=== PATIENT | female | born 1970 | race Caucasian/White ===

== ENCOUNTER 2016-08-13 11:38 | Emergency (ER) | payer BC ==
[~2016-08-13] VITALS: Ht 170.2 cm; Wt 96.0 kg
[2016-08-13 11:41] VITALS: TEMP 36.9; Ht 170.2 cm; Wt 96.0 kg
[2016-08-13] MEDS ORDERED: SODIUM CHLORIDE 0.9% 1000ML 250 ML IV STA (11:50)
[2016-08-13] MEDS ORDERED: SODIUM CHLORIDE 0.9% 1000ML 1,000 ML IV STA (11:50)
--- NOTE | 2016-08-13 12:20 | DIAGNOSTIC IMAGING REPORT ---
SINGLE VIEW CHEST CLINICAL HISTORY: Atypical chest pain. FINDINGS: An AP, portable, upright chest radiograph is obtained. No prior studies are available for comparison at the time of dictation. The cardiomediastinal silhouette is unremarkable. The lungs and pleural spaces are clear. No pneumothorax is seen. The bony thorax is grossly intact. IMPRESSION: No active disease in the chest. Electronically signed by: Tucker Franco M.D. 08/13/2016 12:19 PM Dictated Date/Time: 08/13/2016 12:18 PM
[2016-08-13 12:27] LABS: BASO % 0.2 %; BASO ABS # 0.01 K/uL (0-0.2); COMPLETE YES; HEMATOCRIT 37.9 % (37-47); IG% 0.2 %; LYMPH % 31.5 %; LYMPH ABS # 1.93 K/uL (1.2-3.4); MEAN CELL VOLUME 81.5 fL (80-100); MEAN CORPUSCULAR HGB CONC 35.6 g/dl (32-36); MEAN PLATELET VOLUME 9.1 fL (7.4-10.4); MONO % 6.7 %; NEUT % 60.4 %; PLATELET COUNT 262 K/uL (130-400); RED BLOOD COUNT 4.65 M/uL (4.2-5.4); WHITE BLOOD COUNT 6.13 K/uL (4.8-10.8)
[2016-08-13] MEDS ORDERED: MULT-513 PO (12:27)
[2016-08-13] MEDS ORDERED: LOSA50TA54 PO (12:27)
[2016-08-13] MEDS ORDERED: PROB1TAB16 PO (12:27)
[2016-08-13] MEDS ORDERED: ESCI10TA17 PO (12:27)
[2016-08-13] MEDS ORDERED: ERGO500037 PO (12:27)
[2016-08-13] MEDS ORDERED: LORA-741 PO (12:27)
[2016-08-13 12:39] LABS: BUN/CREATININE RATIO 14.1 (10-20); CALCIUM 8.4 mg/dl (8.5-10.1); CREATININE 0.75 mg/dl (0.60-1.20); POTASSIUM 3.6 mmol/L (3.5-5.1)
[2016-08-13 12:40] LABS: PROTHROMBIN TIME (PATIENT) 10.8 SECONDS (9.0-12.0)
[2016-08-13 12:50] LABS: CKMB/CK RATIO 0.6 (0-3.0); THYROID STIMULATING HORMONE 1.68 uIu/ml (0.300-4.500)
--- NOTE | 2016-08-13 12:57 | EMERGENCY ROOM VISIT NOTE ---
History Report prepared by Hans: Kim Smyth Under the Supervision of: Dr. Michael Coleman M.D. First contact with patient: 11:44 Chief Complaint: CARDIAC ASSESSMENT Stated Complaint: NAUSEA AND ARM PAIN Nursing Triage Summary: chest pain during middle nite none now. History of Present Illness The patient is a 46 year old female who presents to the Emergency Room via for a cardiac assessment for symptoms that have been present for the past several weeks. Within the last several weeks, the patient has had sudden left arm pains with some shortness of breath. She has had indigestion, which she describes as heartburn, without eating. Last night, the patient had severe nausea that woke her up. She broke out into a sweat. She woke up 5 hours ago and as she was getting out of bed, the patient became very dizzy. The patient states that she has a history of hypertension and did not take her dose of Lopressor this morning. The patient was evaluated at the [facility] this morning for these symptoms. There, an EKG was taken and it was considered abnormal. For this, the patient was given 324 mg of aspirin and one nitroglycerin sublingual. Following the nitroglycerin, the patient developed a slight headache. The patient's blood pressure was high this morning at the [facility]. The patient states that her uncle due to a heart attack at a young age. Her mother has a cardiac arrhythmia. Her cholesterol is chronically somewhat high. The patient denies chest pain, calf tenderness, a history of diabetes. Source of History: patient Onset: pas several weeks Position: chest Quality: other (cardiac assessment ) Timing: other (persistent) Associated Symptoms: + SOB, + diaphoresis, + nausea, No chest pain Note: The patient has been dizzy. She has had indigestion, which she describes as heartburn. The patient denies calf tenderness. Review of Systems See HPI for pertinent positives & negatives. A total of 10 systems reviewed and were otherwise negative. Past Medical & Surgical Medical Problems: (1) Chest discomfort (2) Dizziness (3) Hypertension Old medical records were reviewed. Nurse's notes were reviewed and I agree with. Family History FHx: heart disease Social History Smoking Status: Never Smoker Marital Status: Housing Status: lives with family Occupation Status: employed Current/Historical Medications Scheduled Ergocalciferol (Vitamin D 83436 Unit), 50,000 UNIT PO WK Escitalopram (Lexapro), 10 MG PO DAILY Losartan Potassium (Cozaar), 50 MG PO DAILY Meclizine HCl (Meclizine HCl), 1 TAB PO BID Multivitamins/Minerals (Mvi With Minerals), 1 TAB PO DAILY Scheduled PRN Lorazepam (Ativan), 0.5 MG PO DAILY PRN for Anxiety and/or Sedation Probiotic Product (Probiotic), 1 TAB PO UD PRN for PROPHALAXIS Allergies Coded Allergies: Cephalexin (Verified Adverse Reaction, Unknown, ? allergic reaction, ) Physical Exam Vital Signs Date Time Temp Pulse Resp B/P Pulse Ox O2 Delivery O2 Flow Rate FiO2 08/13/16 14:52 83 16 136/87 97 83 143/96 89 143/96 08/13/16 13:38 83 18 139/96 100 Room Air 08/13/16 12:31 75 16 143/95 100 Room Air 08/13/16 12:22 84 08/13/16 11:59 88 16 166/105 100 Room Air 08/13/16 11:47 Room Air 08/13/16 11:41 36.9 92 18 127/77 99 Room Air Physical Exam General: Non ill appearing middle aged female, in no acute distress. HEENT: Normal cephalic atraumatic. Pupils are equal round and reactive to light. Extraocular movements are intact. Oropharynx is pink with moist mucous membranes. No swelling of the mouth lips or tongue. Neck: Supple with a midline trachea. No meningeal signs or stiffness, no JVD or bruits. No Stridor. Chest: Clear to auscultation bilaterally. No wheezes or rhonchi. No increased work of breathing. Heart: regular rate and rhythm. Abdomen: Soft nontender, nondistended without rebound guarding or rigidity. Extremities: No cyanosis clubbing or edema. No calf tenderness or assymetry Spine/Back. Non tender to palpation. No CVA tenderness Skin: Good turgor without rashes. Neurologic exam: Cranial nerves two through 12 are intact. Motor and sensation are intact and symmetrical throughout. Medical Decision & Procedures ER Provider Diagnostic Interpretation: X-ray results as stated below per interpretation by me and the radiologist: SINGLE VIEW CHEST CLINICAL HISTORY: Atypical chest pain. FINDINGS: An AP, portable, upright chest radiograph is obtained. No prior studies are available for comparison at the time of dictation. The cardiomediastinal silhouette is unremarkable. The lungs and pleural spaces are clear. No pneumothorax is seen. The bony thorax is grossly intact. IMPRESSION: No active disease in the chest. Electronically signed by: Tucker Franco M.D. 08/13/2016 12:19 PM Dictated Date/Time: 08/13/2016 12:18 PM Laboratory Results 08/13/16 12:10 Red Blood Count 4.65, Mean Corpuscular Volume 81.5, Mean Corpuscular Hemoglobin 29.0, Mean Corpuscular Hemoglobin Concent 35.6, Mean Platelet Volume 9.1, Neutrophils (%) (Auto) 60.4, Lymphocytes (%) (Auto) 31.5, Monocytes (%) (Auto) 6.7, Eosinophils (%) (Auto) 1.0, Basophils (%) (Auto) 0.2, Neutrophils # (Auto) 3.71, Lymphocytes # (Auto) 1.93, Monocytes # (Auto) 0.41, Eosinophils # (Auto) 0.06, Basophils # (Auto) 0.01 08/13/16 12:10 Test 08/13/16 12:10 08/13/16 12:13 White Blood Count 6.13 K/uL (4.8-10.8) Red Blood Count 4.65 M/uL (4.2-5.4) Hemoglobin 13.5 g/dL (12.0-16.0) Hematocrit 37.9 % (37-47) Mean Corpuscular Volume 81.5 fL (80-100) Mean Corpuscular Hemoglobin 29.0 pg (25-34) Mean Corpuscular Hemoglobin Concent 35.6 g/dl (32-36) Platelet Count 262 K/uL (130-400) Mean Platelet Volume 9.1 fL (7.4-10.4) Neutrophils (%) (Auto) 60.4 % Lymphocytes (%) (Auto) 31.5 % Monocytes (%) (Auto) 6.7 % Eosinophils (%) (Auto) 1.0 % Basophils (%) (Auto) 0.2 % Neutrophils # (Auto) 3.71 K/uL (1.4-6.5) Lymphocytes # (Auto) 1.93 K/uL (1.2-3.4) Monocytes # (Auto) 0.41 K/uL (0.11-0.59) Eosinophils # (Auto) 0.06 K/uL (0-0.5) Basophils # (Auto) 0.01 K/uL (0-0.2) RDW Standard Deviation 39.8 fL (36.4-46.3) RDW Coefficient of Variation 13.4 % (11.5-14.5) Immature Granulocyte % (Auto) 0.2 % Immature Granulocyte # (Auto) 0.01 K/uL (0.00-0.02) Prothrombin Time 10.8 SECONDS (9.0-12.0) Prothromb Time International Ratio 1.0 (0.9-1.1) Activated Partial Thromboplast Time 25.9 SECONDS (21.0-31.0) Partial Thromboplastin Ratio 1.0 Anion Gap 9.0 mmol/L (3-11) Est Creatinine Clear Calc Drug Dose 112.7 ml/min Estimated GFR () 111.6 Estimated GFR (Non- 96.3 BUN/Creatinine Ratio 14.1 (10-20) Calcium Level 8.4 mg/dl (8.5-10.1) Total Bilirubin 0.5 mg/dl (0.2-1) Direct Bilirubin 0.1 mg/dl (0-0.2) Aspartate Amino Transf (AST/SGOT) 16 U/L (15-37) Alanine Aminotransferase (ALT/SGPT) 32 U/L (12-78) Alkaline Phosphatase 63 U/L (45-117) Total Creatine Kinase 123 U/L (26-192) Creatine Kinase MB 0.7 ng/ml (0.5-3.6) Creatine Kinase MB Ratio 0.6 (0-3.0) Total Protein 6.8 gm/dl (6.4-8.2) Albumin 3.9 gm/dl (3.4-5.0) Lipase 131 U/L (73-393) Thyroid Stimulating Hormone (TSH) 1.680 uIu/ml (0.300-4.500) Bedside Troponin I 0.000 ng/ml (0-0.045) Laboratory studies as stated above per my review. Medications Administered Medications (Trade) Dose Ordered Sig/Tan Route Start Time Stop Time Status Last Admin Dose Admin Sodium Chloride 250 ml @ 999 mls/hr Q16M STAT IV 08/13/16 11:50 08/13/16 12:05 DC 08/13/16 12:20 999 MLS/HR Sodium Chloride (Nss 1000ml) 1,000 ml @ 100 mls/hr Q10H STAT IV 08/13/16 11:50 08/13/16 21:49 08/13/16 11:50 100 MLS/HR ECG Indication: nausea Rate (beats per minute): 92 Rhythm: normal sinus Findings: no acute ischemic change, no ectopy Comparison ECG Date: August 13, 2016 Change: I compared the EKG to to the EKG obtained in the [facility]. There is no acute change. EKG 2: Normal sinus rhythm at a rate of 79, no ectopy, no acute ischemic change. ED Course 1145: Past medical records reviewed. The patient was evaluated in room C6, and a complete history and physical examination were performed. 1150: Sodium Chloride 1000 ml @ 100 mls/hr IV, Sodium Chloride 250 ml @ 999 mls/ hr IV 1308: I reevaluated the patient; she is resting comfortably. 1333: Upon reevaluation, the patient is resting. I discussed the results and treatment plan with the patient. She verbalized agreement of the treatment plan. The patient will be evaluated for further management. 1344: I discussed the case with Dr. Fowler ([facility]); he will further evaluate the patient. Medical Decision Differentials include, but are not limited to; Acute coronary syndrome, arrhythmia, vertigo, anxiety, pulmonary distress, electrolyte or metabolic abnormality. This patient comes in as described above. She was placed in room C6. She sent over from her doctor's office after having dizziness and nausea. She may have had some funny feeling in her left arm lately. She's also had some heartburn. She denies any chest pain she was given nitroglycerin which may have helped. She is also given aspirin prior to arrival. She has a history of hypertension. IV access established, EKG was obtained and multiple blood tests was obtained. I looked at the EKG from the office and she has no definite ischemic changes. She had 2 EKGs done here which do not show any ischemic changes or ectopy. There is no change compared to the EKGs and the office or between each other. Her troponin and CK are not elevated. She's had no acute electrolyte or metabolic abnormality. Chest x-ray is unremarkable. She was given IV hydration and feels well. Her symptoms may be consistent with vertigo. She has dizziness with movement however given her possible cardiac etiology, I did consult Dr. Fowler to see her in the ER for possible admission. He feels that she can go home and has called her in some meclizine. The patient is in agreement with this and she'll follow-up with her doctor and return to ER if: Chest pain, worsening of symptoms, fever or chills, any new problems or concerns. She is happy with plan discharged to home. Consults Time Called: [phone] Consulting Physician: Dr. Fowler ([facility]) Returned Call: [phone] I discussed the case with Dr. Fowler ([facility]); he will further evaluate the patient. Impression Primary Impression: Dizziness Additional Impressions: Nausea Left arm pain Vertigo Scribe Attestation The scribe's documentation has been prepared under my direction and personally reviewed by me in its entirety. I confirm that the note above accurately reflects all work, treatment, procedures, and medical decision making performed by me. Departure Information Dispostion Being Evaluated By Hospitalist Prescriptions Meclizine HCl (Meclizine HCl) 12.5 Mg Tab 1 TAB PO BID for 30 Days, #60 TAB Prov: Saray Porter ., LUZ MARINA 08/13/16 Referrals Jose Herzog M.D. (PCP) Patient Instructions My [facility] Problem Qualifiers
[2016-08-13] MEDS ORDERED: NITROGLYCERIN 0.4 MG SL PER TAB CHARGE SL PRN (14:15)
[2016-08-13] MEDS ORDERED: ACETAMINOPHEN 325 MG TAB PO PRN (14:15)
[2016-08-13] MEDS ORDERED: ALUMINUM/MAGNESIUM/SIMETH (MAALOX MAX) 30 ML UDC PO PRN (14:15)
[2016-08-13] MEDS ORDERED: LORAZEPAM 0.5 MG TAB PO PRN (14:15)
[2016-08-13] MEDS ORDERED: ONDANSETRON INJ 2 MG/ML 2 ML VIAL IV PRN (14:15)
[2016-08-13] MEDS ORDERED: MAGNESIUM HYDROXIDE SUSP 30 ML UDC PO PRN (14:15)
[2016-08-13] MEDS ORDERED: POLYETHYLENE (MIRALAX) 17 GM PACK PO PRN (14:15)
[2016-08-13] MEDS ORDERED: ENOXAPARIN 40 MG/0.4 ML SYR SC SCH (14:15)
[2016-08-13] MEDS ORDERED: SODIUM CHLORIDE 0.9% 1000ML 1,000 ML IV ONE (14:15)
[2016-08-13] MEDS ORDERED: MECL1TAB40 PO (14:22)
--- NOTE | 2016-08-13 14:29 | Discharge Instructions ---
Discharge Instructions Date of Service Aug 13, 2016. Admission Reason for Admission: Nausea And Arm Pain Discharge Discharge Diagnosis / Problem: Dizziness; Arm pain Discharge Goals Goal(s): Decrease discomfort, Diagnostic testing Activity Recommendations Activity Limitations: resume your previous activity . Instructions / Follow-Up Instructions / Follow-Up Meclizine 12.5 mg by mouth twice a day This medication is to help treat your dizziness--> please follow-up with your PCP to further evaluate and manage your dizziness Prescription has been sent to your pharmacy Resume all regular home medications as prescribed to you Please follow-up with your PCP within 3-5 days It is recommended you have an outpatient echocardiogram performed. Your PCP can help further schedule this and management further evaluation/management Please follow-up/keep all of your subspecialty appointments Current Hospital Diet Patient's current hospital diet: AHA Diet (Heart Healthy) Discharge Diet Recommended Diet: AHA Diet (Heart Healthy) Procedures Procedures Performed: 1. Chest x-ray Pending Studies Studies pending at discharge: no Laboratory Results Last 24 Hours Test 08/13/16 11:50 08/13/16 12:10 08/13/16 12:13 Creatine Kinase MB Ratio 0.6 White Blood Count 6.13 K/uL Red Blood Count 4.65 M/uL Hemoglobin 13.5 g/dL Hematocrit 37.9 % Mean Corpuscular Volume 81.5 fL Mean Corpuscular Hemoglobin 29.0 pg Mean Corpuscular Hemoglobin Concent 35.6 g/dl Platelet Count 262 K/uL Mean Platelet Volume 9.1 fL Neutrophils (%) (Auto) 60.4 % Lymphocytes (%) (Auto) 31.5 % Monocytes (%) (Auto) 6.7 % Eosinophils (%) (Auto) 1.0 % Basophils (%) (Auto) 0.2 % Neutrophils # (Auto) 3.71 K/uL Lymphocytes # (Auto) 1.93 K/uL Monocytes # (Auto) 0.41 K/uL Eosinophils # (Auto) 0.06 K/uL Basophils # (Auto) 0.01 K/uL RDW Standard Deviation 39.8 fL RDW Coefficient of Variation 13.4 % Immature Granulocyte % (Auto) 0.2 % Immature Granulocyte # (Auto) 0.01 K/uL Prothrombin Time 10.8 SECONDS Prothromb Time International Ratio 1.0 Activated Partial Thromboplast Time 25.9 SECONDS Partial Thromboplastin Ratio 1.0 Sodium Level 141 mmol/L Potassium Level 3.6 mmol/L Chloride Level 108 mmol/L Carbon Dioxide Level 24 mmol/L Anion Gap 9.0 mmol/L Blood Urea Nitrogen 11 mg/dl Creatinine 0.75 mg/dl Est Creatinine Clear Calc Drug Dose 112.7 ml/min Estimated GFR () 111.6 Estimated GFR (Non- 96.3 BUN/Creatinine Ratio 14.1 Random Glucose 90 mg/dl Calcium Level 8.4 mg/dl Total Bilirubin 0.5 mg/dl Direct Bilirubin 0.1 mg/dl Aspartate Amino Transf (AST/SGOT) 16 U/L Alanine Aminotransferase (ALT/SGPT) 32 U/L Alkaline Phosphatase 63 U/L Total Creatine Kinase 123 U/L Creatine Kinase MB 0.7 ng/ml Total Protein 6.8 gm/dl Albumin 3.9 gm/dl Lipase 131 U/L Thyroid Stimulating Hormone (TSH) 1.680 uIu/ml Bedside Troponin I 0.000 ng/ml Medical Emergencies . Who to Call and When: Medical Emergencies: If at any time you feel your situation is an emergency, please call 911 immediately. . Non-Emergent Contact Non-Emergency issues call your: Primary Care Provider . . "Provider Documentation" section prepared by Saray Porter. VTE Core Measure Inpt VTE Proph given/why not?: Treatment not indicated
[2016-08-13] MEDS ORDERED: IV FLUIDS COMPLETED PRN (14:30)
--- NOTE | 2016-08-13 14:47 | Medical Consult ---
Consultation Date of Consultation: Aug 13, 2016. Attending Physician: Dr. Fowler Reason for Consultation: Cardiac evaluation History of Present Illness Patient is a pleasant 46 y/o female, with PMHx of HTN and anxiety, who presented to the ED for cardiac assessment due left chest/arm discomfort, nausea , and dizziness. Symptoms have been ongoing for several weeks now. +left arm discomfort- no alleviating/exacerbating factors, pain comes and goes. This morning, she experienced left arm discomfort, diaphoresis, dizziness, and nausea. She had an appointment with her PCP and was told her EKG was abnormal. She was given 325 mg ASA and nitroglycerin, and instructed to come to the ER. Currently, patient states she is feeling well. She admits to dizziness when changing positions quickly. Denies any cardiac history. Denies any h/o CVA/TIA, PE/DVT. Patient denies any fever, chills, lightheadedness, vision changes, CP, palpitations, edema, SOB, wheezing, cough, abdominal pain, vomiting, diarrhea, urinary symptoms, melena, numbness/tingling, weakness, muscle/joint pain, anxiety/depression, active bleeding, or new skin discoloration/changes. Patient wished to return home and avoid admission. I believe this is reasonable given: Stable vitals, cardiac enzymes negative x1, EKG unremarkable, CXR showing no acute process, CBC/PRP unremarkable, and no cardiac history with only major risk factor being HTN. Additionally, symptoms have been ongoing for several weeks at this point. Past Medical/Surgical History Medical Problems: 1. HTN 2. Anxiety Family History Uncle- Heart disease Mother- A.fib Social History Smoking Status: Never Smoker Marital Status: Housing Status: lives with family Occupation Status: employed Allergies Coded Allergies: Cephalexin (Verified Adverse Reaction, Unknown, ? allergic reaction, ) Home Medications Reported Home Medications Medications Dose Route/Sig Max Daily Dose Days Date Category Meclizine HCl 12.5 Mg Tab 1 Tab PO BID 30 08/13/16 Rx Mvi With Minerals (Multivitamins/Minerals) Tab 1 Tab PO DAILY 08/13/16 Reported Probiotic (Probiotic Product) 1 Tab Tab 1 Tab PO UD PRN 08/13/16 Reported Ativan (Lorazepam) 0.5 Mg Tab 0.5 Mg PO DAILY PRN 08/13/16 Reported Vitamin D 17511 Unit (Ergocalciferol) 50,000 Unit Cap 50,000 Unit PO WK 08/13/16 Reported Cozaar (Losartan Potassium) 50 Mg Tab 50 Mg PO DAILY 08/13/16 Reported Lexapro (Escitalopram Oxalate) 10 Mg Tab 10 Mg PO DAILY 08/13/16 Reported Current Inpatient Medications Current Inpatient Medications Medications (Trade) Dose Ordered Sig/Tan Route Start Time Stop Time Status Last Admin Dose Admin Sodium Chloride (Nss 1000ml) 1,000 ml @ 100 mls/hr Q10H STAT IV 08/13/16 11:50 08/13/16 21:49 08/13/16 11:50 100 MLS/HR Escitalopram Oxalate (Lexapro Tab) 10 mg DAILY PO 08/14/16 09:00 09/13/16 08:59 UNV Lorazepam (Ativan Tab) 0.5 mg DAILY PRN PO 08/13/16 14:15 09/12/16 14:14 UNV Losartan Potassium (coZAAR TAB) 50 mg DAILY PO 08/14/16 09:00 09/13/16 08:59 UNV Multivitamins/ Minerals (Multivitamin W/ Minerals Tab) 1 tab DAILY PO 08/14/16 09:00 09/13/16 08:59 UNV Pantoprazole Sodium (Protonix Tab) 40 mg BID PO 08/13/16 21:00 09/12/16 20:59 UNV Miscellaneous (Iv Fluids Completed) 1 ea PRN PRN N/A 08/13/16 14:30 08/13/17 14:29 UNV Physical Exam Date Time Temp Pulse Resp B/P Pulse Ox O2 Delivery O2 Flow Rate FiO2 08/13/16 13:38 83 18 139/96 100 Room Air 08/13/16 12:31 75 16 143/95 100 Room Air 08/13/16 12:22 84 08/13/16 11:59 88 16 166/105 100 Room Air 08/13/16 11:47 Room Air 08/13/16 11:41 36.9 92 18 127/77 99 Room Air General Appearance: WD/WN, no apparent distress Head: normocephalic, atraumatic Eyes: normal inspection, PERRL ENT: normal ENT inspection, hearing grossly normal, TMs normal Neck: supple Respiratory/Chest: lungs clear, no respiratory distress, no accessory muscle use Cardiovascular: regular rate, rhythm Abdomen/GI: normal bowel sounds, non tender, soft Back: normal inspection Extremities/Musculoskelatal: no calf tenderness, no pedal edema Neurologic/Psych: alert, normal mood/affect, oriented x 3 Skin: normal color, warm/dry, no rash Laboratory Results Last 24 Hours Test 08/13/16 11:50 08/13/16 12:10 08/13/16 12:13 Creatine Kinase MB Ratio 0.6 White Blood Count 6.13 K/uL Red Blood Count 4.65 M/uL Hemoglobin 13.5 g/dL Hematocrit 37.9 % Mean Corpuscular Volume 81.5 fL Mean Corpuscular Hemoglobin 29.0 pg Mean Corpuscular Hemoglobin Concent 35.6 g/dl Platelet Count 262 K/uL Mean Platelet Volume 9.1 fL Neutrophils (%) (Auto) 60.4 % Lymphocytes (%) (Auto) 31.5 % Monocytes (%) (Auto) 6.7 % Eosinophils (%) (Auto) 1.0 % Basophils (%) (Auto) 0.2 % Neutrophils # (Auto) 3.71 K/uL Lymphocytes # (Auto) 1.93 K/uL Monocytes # (Auto) 0.41 K/uL Eosinophils # (Auto) 0.06 K/uL Basophils # (Auto) 0.01 K/uL RDW Standard Deviation 39.8 fL RDW Coefficient of Variation 13.4 % Immature Granulocyte % (Auto) 0.2 % Immature Granulocyte # (Auto) 0.01 K/uL Prothrombin Time 10.8 SECONDS Prothromb Time International Ratio 1.0 Activated Partial Thromboplast Time 25.9 SECONDS Partial Thromboplastin Ratio 1.0 Sodium Level 141 mmol/L Potassium Level 3.6 mmol/L Chloride Level 108 mmol/L Carbon Dioxide Level 24 mmol/L Anion Gap 9.0 mmol/L Blood Urea Nitrogen 11 mg/dl Creatinine 0.75 mg/dl Est Creatinine Clear Calc Drug Dose 112.7 ml/min Estimated GFR () 111.6 Estimated GFR (Non- 96.3 BUN/Creatinine Ratio 14.1 Random Glucose 90 mg/dl Calcium Level 8.4 mg/dl Total Bilirubin 0.5 mg/dl Direct Bilirubin 0.1 mg/dl Aspartate Amino Transf (AST/SGOT) 16 U/L Alanine Aminotransferase (ALT/SGPT) 32 U/L Alkaline Phosphatase 63 U/L Total Creatine Kinase 123 U/L Creatine Kinase MB 0.7 ng/ml Total Protein 6.8 gm/dl Albumin 3.9 gm/dl Lipase 131 U/L Thyroid Stimulating Hormone (TSH) 1.680 uIu/ml Bedside Troponin I 0.000 ng/ml Assessment & Plan 46 y/o female, with PMHx of HTN and anxiety, who presented to the ED for cardiac assessment due left chest/arm discomfort, nausea, indigestion, and dizziness. Cardiac assessment: - EKG unremarkable - Cardiac enzymes negative x1 - CXR with no acute processes - CBC and PRP unremarkable Discussed with patient and --> in agreement and patient wishes to go home /avoid admission; 1. Instructed to follow-up with PCP within 3-5 days 2. Recommended she have an ECHO performed outpatient 3. Recommend outpatient ha1c and lipid panel Dizziness: 1. Recommend trying Meclizine 12.5 mg PO BID 2. Follow-up with PCP HTN: Continue Cozaar 50 mg PO daily Anxiety: Continue Lexapro 10 mg PO daily and Ativan 0.5 mg PO PRN Dispo: Discharge to home I agree with PA assessment and plan and have seen and examined pt myself Pt presents with atypical CP Low risk factors, only hx of HTN, EKG sinus rhythm, trops x 1 set neg, pt will f /u with PCP for outpt echo Dizziness likely from BPV< meclizine sent to pharmacy OK to discharge home
[2016-08-13 15:35] VITALS: BP 149/105; PULSE 79; O2SAT 99
[2016-08-13] MEDS ORDERED: PANTOprazole SOD 40 MG TAB PO SCH (21:00)
[2016-08-14] MEDS ORDERED: CEROVITE ADV FORMULA TAB PO SCH (09:00)
[2016-08-14] MEDS ORDERED: LOSARTAN POTASSIUM 50 MG TAB PO SCH (09:00)
[2016-08-14] MEDS ORDERED: ESCITALOPRAM OXALATE 10 MG TAB PO SCH (09:00)
== END 2016-08-13 15:37 | disposition home or self-care (01) ==
LOC: C.EDB 11:39 → CANBEDREQ 14:22 → C.EDC 15:37
DX: R42 Dizziness and giddiness (principal); R11.0 Nausea; M79.602 Pain in left arm; I10 Essential (primary) hypertension; Z79.899 Other long term (current) drug therapy; Z88.8 Allergy status to other drugs, medicaments and biological substances; Z82.49 Family history of ischemic heart disease and other diseases of the circulatory system

== ENCOUNTER → 2016-10-19 | Outpatient (CLI) | payer BC ==
[~2016-10-19] MED LIST: ERGO500037 PO; ESCI10TA17 PO; LORA-741 PO; LOSA50TA54 PO; MULT-513 PO; PROB1TAB16 PO
--- NOTE | 2016-10-19 16:29 | MAMMOGRAPHY REPORT ---
BILATERAL DIGITAL SCREENING MAMMOGRAM TOMOSYNTHESIS WITH CAD: 10/19/2016 CLINICAL HISTORY: Routine screening. Patient has no complaints. TECHNIQUE: Breast tomosynthesis in addition to standard 2D mammography was performed. Current study was also evaluated with a Computer Aided Detection (CAD) system. COMPARISON: Comparison is made to exams dated: 10/08/2015 mammogram, 03/31/2015 mammogram, 11/04/2013 mammogram, 10/09/2012 mammogram, 05/12/2011 mammogram, and 04/09/2015 mammogram - [facility]. BREAST COMPOSITION: There are scattered areas of fibroglandular density in both breasts. FINDINGS: There is an 11 mm focal asymmetry in the left lower outer quadrant, for which spot compre ssion tomosynthesis views and possible ultrasound is recommended for further evaluation. The remainder of both breasts are stable compared to prior exams, without suspicious masses, calcifi cations, or areas of architectural distortion noted. IMPRESSION: ACR BI-RADS CATEGORY 0: INCOMPLETE EVALUATION: NEED ADDITIONAL IMAGING EVALUATION Left breast focal asymmetry, for which additional imaging evaluation is recommended. The patient regina l be called to schedule an appointment. Approximately 10% of breast cancers are not detected with mammography. A negative mammographic repor t should not delay biopsy if a clinically suggestive mass is present. Tracy Amato M.D. /:10/19/2016 16:09:24 Activities Concierge: Kari GOODEN)(Lelia), [facility] letter sent: Addl Imaging 0 BI-RADS Code: ACR BI-RADS Category 0: Incomplete Evaluation: Need Additional Imaging Evaluation
== END | disposition home or self-care (01) ==
LOC: C.MAMM 13:58
PROVIDERS: ATTEND Internal Medicine
DX: Z12.31 Encounter for screening mammogram for malignant neoplasm of breast (principal); N64.89 Other specified disorders of breast

== ENCOUNTER → 2016-10-20 | Outpatient (CLI) | payer BC | END | disposition home or self-care (01) | LOC: C.PAPS 11:03 | PROVIDERS: ATTEND Physician Assistant | DX: Z12.4 Encounter for screening for malignant neoplasm of cervix (principal) ==

== ENCOUNTER → 2016-10-26 | Outpatient (CLI) | payer BC ==
--- NOTE | 2016-10-26 13:14 | MAMMOGRAPHY REPORT ---
UNILATERAL LEFT DIGITAL DIAGNOSTIC MAMMOGRAM TOMOSYNTHESIS AND TARGETED LEFT ULTRASOUND: 10/26/2016 CLINICAL HISTORY: Callback from screening mammogram for left breast asymmetry. TECHNIQUE: Breast tomosynthesis in addition to standard 2D mammography was performed. Spot compress ion left CC and MLO and full field left CC and MLO tomosynthesis images including C views were obtain ed. COMPARISON: Comparison is made to exams dated: 10/19/2016 mammogram, 03/31/2015 mammogram, 11/04/2013 mammogram, 10/24/2012 mammogram, 10/24/2012 ultrasound, and 10/09/2012 mammogram - [facility] enter. BREAST COMPOSITION: There are scattered areas of fibroglandular density in the left breast. FINDINGS: Spot compression views of the left breast demonstrate decreased prominence of the focal as ymmetry within the left lower outer quadrant. The asymmetry has the appearance of normal fibroglandu lar tissue on the tomosynthesis images. Targeted ultrasound was performed of the left lower outer quadrant in the region of the mammographic asymmetry. In the left breast at 3:00, 5 cm from the nipple, there is a hypoechoic oval circumscribe d mass which measures 9 x 4 x 5 mm. A BB was placed on the skin at the site of the sonographic mass and left CC and MLO images were obtained. The BB is in the general region of the mammographic asymme try although is somewhat more anterior to it although this could be due to positional differences. T he sonographic finding likely corresponds with the mammographic asymmetry. Although this may represe nt normal fibroglandular tissue, ultrasound guided biopsy is recommended for further evaluation. IMPRESSION: ACR BI-RADS CATEGORY 4A: LOW SUSPICION FOR MALIGNANCY, TARGETED ULTRASOUND ACR BI-RADS C ATEGORY 4A: LOW SUSPICION FOR MALIGNANCY Decreased prominence of the focal asymmetry on the additional spot compression views. A hypoechoic 9 mm mass is seen within the left breast at 3:00 on ultrasound, which likely corresponds with the mamm ographic asymmetry. Although this may represent benign fibroglandular tissue, ultrasound-guided biop sy is recommended for further evaluation. A phone call was made to the physician's office to confirm faxed results were received. The patient has been verbally notified of the results. She tentatively scheduled the biopsy before leaving the [facility]. Approximately 10% of breast cancers are not detected with mammography. A negative mammographic report should not delay biopsy if a clinically suggestive mass is present. Tracy Amato M.D. ah/:10/26/2016 10:29:26 [employer]: Kari GOODEN)(Lelia), [facility] letter sent: Abnormal 4/5 BI-RADS Code: ACR BI-RADS Category 4A: Low Suspicion For Malignancy Ultrasound BI-RADS: ACR BI-RADS Category 4A: Low Suspicion For Malignancy
== END | disposition home or self-care (01) ==
LOC: C.MAMM 08:35
PROVIDERS: ATTEND Internal Medicine
DX: N64.89 Other specified disorders of breast (principal); N63 Unspecified lump in breast

== ENCOUNTER → 2016-11-01 | Outpatient (CLI) | payer BC ==
--- NOTE | 2016-11-01 09:55 | Discharge Instructions ---
Discharge Instructions Procedure Procedure Date: Nov 01, 2016. Reason for visit: Left Mass. Discharge Discharge Date: Nov 01, 2016. Discharge Diagnosis: post left breast ultrasound guided core biopsy Instructions Activity Recommendations: Additional Limitations (see below) Return to School/Work: no limitations Recommended Home Diet: No Limitations Provider Instructions: ACTIVITY RECOMMENDATIONS: * No lifting, pushing, pulling or exercising the affected side for three days. RETURN TO SCHOOL/WORK: * You may return to work/school after the procedure, but do not perform any strenuous activities for 24 to 48 hours. MEDICATIONS: * Tylenol (two 325 mg) every four to six hours if needed for mild pain (if not allergic to Tylenol). DIET: * Resume previous diet. SPECIAL CARE INSTRUCTIONS: * Keep biopsy site dry for 24 hours. May shower after 24 hours, but do not soak (bathe) incision. * May remove Tegaderm (plastic patch) tomorrow AFTER showering. * Leave the steri-strips on for one week. Allow the steri-strips to fall off by themselves. If not off after one week, you may remove them. You may place a Bandaid crosswise over the strips, if desired. * Apply ice 10 minutes on and 10 minutes off as needed. * Wear a bra at bedtime to sleep more comfortably for 2-3 days. * Your referring physician should have the results after approximately 5 to 7 business days. * Call for unusual bleeding, fever, drainage, etc or if you have any questions call [phone] during normal business hours or after hours call Dr Bhatt, . FOLLOW UP VISIT: Follow-up with Referring Physician as scheduled. Allergies Coded Allergies: Cephalexin (Verified Adverse Reaction, Unknown, ? allergic reaction, ) Saira Medel Recommendations: Call your doctor if: * Temperature above 101 degrees * Pain not relieved by pain medicine ordered * There is increased drainage or redness from any incision * You have any unanswered questions or concerns. Your Doctors Instructions noted above were prepared by provider Ambar Bhatt. Patient Signature Section: Patient Instructions Signature Page Florecita Teaguecandelaria Patient (or Guardian) Signature/Date: I have read and understand the instructions given to me by my caregivers. Caregiver/RN/Doctor Signature/Date: The above-named patient and/or guardian has received patient instructions on this date. + Original Patient Signature Page (only) stays with chart. Please make copy for patient.
--- NOTE | 2016-11-01 14:43 | MAMMOGRAPHY REPORT ---
UNILATERAL LEFT DIGITAL DIAGNOSTIC MAMMOGRAM TOMOSYNTHESIS: 11/01/2016 CLINICAL HISTORY: Status post ultrasound-guided core biopsy of an isoechoic 9 mm mass in the 3:00 lef t breast. Please refer to the report from left breast ultrasound guided core biopsy performed at the same time for full detail. IMPRESSION: POST PROCEDURE IMAGING FOR MARKER PLACEMENT Please refer to the report from left breast ultrasound guided core biopsy performed at the same time for full detail. Approximately 10% of breast cancers are not detected with mammography. A negative mammographic report should not delay biopsy if a clinically suggestive mass is present. Ambar Bhatt M.D. ay/:11/01/2016 09:58:[address] Magistrate: Jacquie DE LA TORRE(Chris)(M), [facility] BI-RADS Code: Post Procedure Imaging For Marker Placement
--- NOTE | 2016-11-01 14:43 | MAMMOGRAPHY REPORT ---
THIS REPORT HAS BEEN AMENDED. ULTRASOUND GUIDED BIOPSY LEFT BREAST: 11/01/2016 CLINICAL HISTORY: Indeterminate isoechoic 9 mm mass in the 3:00 left breast. Patient presented for u ltrasound guided core biopsy. COMPARISON: Comparison is made to exams dated: 10/26/2016 ultrasound, 10/26/2016 mammogram, 10/19/2016 ma mmogram, 10/08/2015 mammogram, 04/09/2015 mammogram, and 04/09/2015 ultrasound - [facility]. PATIENT CONSENT: The procedure, risks and benefits were discussed with the patient and informed writt en consent was obtained. Specific risks to this procedure include: bleeding, infection, puncture of a djacent structure, nontarget biopsy, sampling error, metal allergy, pain and medication reaction. PROCEDURE DESCRIPTION: A time out was performed and the left breast was agreed as the site of biopsy. The skin was prepped and draped in the usual sterile fashion. The 9 mm isoechoic solid-appearing mas s in the 3:00 left breast was chosen as the target for biopsy. Subcutaneous and intraparenchymal 1% b uffered lidocaine, with and without epinephrine, was administered as local anesthesia. A skin incisio n was made. Through the incision, 4 samples were taken with a 14 gauge Achieve biopsy device. A meta llic marker was placed at the biopsy site. Hemostasis was achieved after manual compression. The cruz ent tolerated the procedure well and there was no immediate complication. The samples were sent to located within [facility] pathology department in an appropriately labeled container. Post procedure left CC and ML tomosynthesis images were obtained. There is alignment of the biopsy m arker clip with a focal asymmetry in question, confirming mammographicsonographic correlation. No s ignificant postbiopsy hematoma is identified. IMPRESSION: ULTRASOUND GUIDED BIOPSY Status post ultrasound-guided core needle biopsy of an indeterminate mass in the 3:00 left breast, wh ich correlates with a focal mammographic asymmetry, and biopsy marker placed at the site. The patient will receive notification of the biopsy results from her referring physician. Ambar Bhatt M.D. ay/:11/01/2016 10:10:20 [employer] Solution Architect: Jacquie GOODEN)(Lelia), [facility] AMENDMENT: 11/10/2016 Ambar Bhatt M.D. Pathology results from the ultrasound-guided core biopsy of a focal asymmetry in the 3:00 left breast yielded benign breast tissue. Negative for in situ and invasive carcinoma. "Within the specimen th ere is a collection of mildly dilated ducts with active stroma. There are no atypical features prese nt. I am not convinced this is fibroadenomatoid change. Some of the stromal changes resemble PASH. This may represent a type of adenosis or possibly an area of PASH. There is no evidence of in situ o r invasive carcinoma. The pathology results are concordant with the imaging appearance. The differential diagnosis for a f ocal asymmetry does include PASH. However since pathology was not definitive, a short interval follow -up diagnostic left mammogram and repeat targeted ultrasound is read middle to ensure stability in 6 months.
== END | disposition home or self-care (01) ==
LOC: C.MAMM 09:08
PROVIDERS: ATTEND Internal Medicine
DX: N63 Unspecified lump in breast (principal)

== ENCOUNTER → 2016-12-07 | Outpatient (CLI) | payer BC ==
--- NOTE | 2016-12-07 09:43 | DIAGNOSTIC IMAGING REPORT ---
LEFT SHOULDER MIN 2 VIEWS CLINICAL HISTORY: Left shoulder pain. COMPARISON: None FINDINGS: Alignment of the left shoulder is anatomic. No fracture or osseous lesion is identified. There is mild joint space narrowing and osteophytosis of the acromioclavicular and glenohumeral joints. IMPRESSION: 1. No fracture or dislocation of the left shoulder. 2. 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 Electronically signed by: Scott Tavarez M.D. 12/07/2016 9:42 AM Dictated Date/Time: 12/07/2016 9:42 AM
== END | disposition home or self-care (01) ==
LOC: C.RDSM 09:07
PROVIDERS: ATTEND Internal Medicine
DX: M25.512 Pain in left shoulder (principal)

== ENCOUNTER → 2017-03-13 | Outpatient (CLI) | payer BC | END | disposition home or self-care (01) | LOC: C.PATHSPEC 11:02 | PROVIDERS: ATTEND Obstetrics & Gynecology | DX: N92.0 Excessive and frequent menstruation with regular cycle (principal); N85.00 Endometrial hyperplasia, unspecified ==

== ENCOUNTER → 2017-05-03 | Outpatient (CLI) | payer BC ==
--- NOTE | 2017-05-03 16:01 | MAMMOGRAPHY REPORT ---
UNILATERAL LEFT DIGITAL DIAGNOSTIC MAMMOGRAM TOMOSYNTHESIS WITH CAD AND TARGETED LEFT ULTRASOUND: CLINICAL HISTORY: 46-year-old woman presents for follow-up in the left breast. She is 6 months statu s post biopsy of a 10mm focal asymmetry/mass identified in the 3:00 axis which yielded benign patholo gy results. TECHNIQUE: Left breast tomosynthesis in addition to standard 2D mammography was performed. Current st udy was also evaluated with a Computer Aided Detection (CAD) system. COMPARISON: Comparison is made to exams dated: 11/01/2016 ultrasound biopsy, 11/01/2016 mammogram, 10/26 mammogram, 10/26/2016 ultrasound, 10/19/2016 mammogram, and 10/08/2015 mammogram - [facility]. BREAST COMPOSITION: There are scattered areas of fibroglandular density in the left breast. FINDINGS: There is a stable biopsy marker clip associated with a focal asymmetry in the 3:00 to 4:00 middle one third of the left breast. The focal asymmetry is decreased in conspicuity comparing to th e 10/19/2016 mammograms. No new suspicious mass, focal area of architectural distortion, developing asymmetry or cluster of suspicious microcalcifications are seen. Repeat targeted ultrasound was performed in the 3:00 to 4:00 left breast in the area of biopsied 9 mm mass. A parallel isoechoic to hypoechoic benign-appearing mass with associated biopsy marker clip i s again identified, measuring approximately 8.6 x 3.1 x 6.9 mm. This is unchanged comparing to the p rior ultrasound and considered benign given the benign pathology results as well. No further close f ollow-up is needed at this time. Recommend return to annual screening mammography schedule. IMPRESSION: ACR BI-RADS CATEGORY 2: BENIGN, TARGETED ULTRASOUND ACR BI-RADS CATEGORY 2: BENIGN Decreased mammographic conspicuity of a focal asymmetry in the 3:00 to 4:00 left breast, with stable associated biopsy marker clip. No significant interval change of this biopsied mass on ultrasound ei ther. This finding is considered benign and no further close follow-up is needed at this time. Dhaval mmend return to annual screening mammography schedule, due in September 2017. These results and recommendations were discussed with the patient at the time of the exam. Approximately 10% of breast cancers are not detected with mammography. A negative mammographic report should not delay biopsy if a clinically suggestive mass is present. Ambar Bhatt M.D. ay/:05/03/2017 09:03:25 Supervisor [employer] Workers: Shadia GOODEN)(Lelia), [facility] letter sent: Normal 1/2 BI-RADS Code: ACR BI-RADS Category 2: Benign Ultrasound BI-RADS: ACR BI-RADS Category 2: Benign
== END | disposition home or self-care (01) ==
LOC: C.MAMM 08:39
PROVIDERS: ATTEND Internal Medicine
DX: Z09 Encounter for follow-up examination after completed treatment for conditions other than malignant neoplasm (principal); N64.89 Other specified disorders of breast